=== PATIENT | female | born 1990 | race Caucasian/White ===

== ENCOUNTER 2018-02-27 13:54 | Inpatient (IN) | payer MEDICAID ==
[2018-02-27 14:50] LABS: PLATELET COUNT 143 10^3/uL (150-400)
--- NOTE | 2018-02-27 15:19 | PDGENHP ---
History and Physical History and Physical: CARE: [facility] HPI: Patient is a 27yo with IUP@ 37-6wks that presents to L&D from office 2/2 elevated BP's. Pt denies any headaches, visual changes, epigastric pain. She denies any contractions, LOF, VB. She reports +FM. EDC: 03/14/18 which is based on LMP: 06/07/17 which is known and consistent with Ultrasound at 7 weeks. Her is complicated by: BMI, abnormal 1hr GTT- 3hr NL, rubella low Immune, Rh Negative, HISTORY: Previous OB history: G1 Past medical history: back injury x3, rh negative Past surgical history: none Medications: PNV, rhogam Allergies (list reaction): NKDA LABS: Rh: negative ABS: Neg Rubella: low Immune HbsAg: NR HIV: NR VDRL: NR 1hr: 142, 3hr GTT NL Gonorrhea: Neg Chlamydia: Neg Pap: Normal GBS: negative BMI: (prepreg) 31 PHYSICAL EXAM: Constitutional: WN, A&Ox3 HEENT: normocephalic atraumatic, supple Heart: RRR, no murmur Chest: CTA-B Abdomen: Soft, nontender, gravid SVE: ft/th/high (in office) Extremities: 1+ edema, negative homans sign Neuro: grossly normal Psych: normal affect assessment: Reassuring FHTs, baseline 120 +accels, no decels, moderate variability Contractions: toco: irritability noted Assessment: 1) 27yo with IUP@37-6wks (L/7) 2) GHTN, no evidence of PreEclampsia 3) IOL 4) GBS negative 5) Cat 1 FHR tracing 6) platelets 147 7) P:C 1.0 8) Rh negative 9) Rubella Low Immune Plan: 1) admit to L&D 2) chavez balloon placed 3) anticipate pitocin/AROM in AM 4) closely monitor BPs 5) Dr Holly, aware and agrees with plan of care
[2018-02-27] MEDS ORDERED: LIDOCAINE 1% 300 MG/30 ML SDV SC PRN (15:53)
[2018-02-27] MEDS ORDERED: OLIVE OIL 118 ML BTL MISC PRN (15:53)
[2018-02-27] MEDS ORDERED: EPSOM SALT 454 GM TP PRN (15:53)
[2018-02-27] MEDS ORDERED: TERBUTALINE SULFATE 1 MG/ML VIAL IV PRN (15:53)
[2018-02-27] MEDS ORDERED: LR 1,000 ML IV PRN (15:53)
[2018-02-27] MEDS ORDERED: IBUPROFEN 600 MG TAB PO PRN (15:53)
[2018-02-27] MEDS ORDERED: MISOPROSTOL 200 MCG TAB PR PRN (15:53)
[2018-02-27] MEDS ORDERED: OXYTOCIN/RINGERS LACTATE 1,000 ML IV PRN (15:53)
[2018-02-27] MEDS ORDERED: ZOLPIDEM TARTRATE 5 MG TAB PO PRN (17:08)
[2018-02-27] MEDS ORDERED: OXYTOCIN 10 UNIT/ML VIAL ONE ×3 (18:15→18:17)
[2018-02-27] MEDS ORDERED: AMMONIA AROMATIC 1 EACH AMP IH ONE (18:17)
[2018-02-28] MEDS ORDERED: LR 500 ML IV PRN (03:16)
[2018-02-28] MEDS ORDERED: OXYTOCIN/RINGERS LACTATE 500 ML IV SCH (03:30)
[2018-02-28 06:51] LABS: PLATELET COUNT 132 10^3/uL (150-400)
--- NOTE | 2018-02-28 13:53 | OBPROG ---
Labor Progress Note Assessment/Plan: Assessment: IUP at 38 wks gest hypertension Plan: AROM - clear fluid cont pitocin 02/28/18 13:50 Subjective/Intrapartum Course: 02/28/18 13:51 Pt doing fine - minimal discomfort with ctxns at this point. ok with AROM to help build intensity. denies JACOBS or n/v or RUQ pain Objective: 02/28/18 06:00 02/28/18 06:00 Patient ABO/Rh O NEGATIVE 02/27/18 14:30 Uric Acid 6.4 mg/dL (2.5-6.8) 02/28/18 06:00 Total Bilirubin 0.3 mg/dL (0.1-1.4) 02/28/18 06:00 Conjugated Bilirubin 0.3 mg/dL (0.0-0.5) 02/28/18 06:00 Unconjugated Bilirubin 0.0 mg/dL (0.0-1.1) 02/28/18 06:00 AST 24 IU/L (14-46) 02/28/18 06:00 ALT 29 IU/L (9-52) 02/28/18 06:00 Lactate Dehydrogenase 436 IU/L (313-618) 02/28/18 06:00 - SVE Dilation (cm): 4 Effacement (%): 80 Station: -2 Membranes: AROM Amniotic Fluid Color: Clear - Contraction Pattern Assessment Current Contraction Pattern: Irregular (on 16 mu/min pit - mild ctxns) - FHR Assessment [place] FHR (bpm): 130 FHR Pattern Variability: Moderate FHR Category: 1 - Procedures Non-surgical Procedures: Amniotomy Oxytocin Orders Assessment - Pre-Induction/Augmentation Assessment Gestational Age: 37 week(s) and 6 day(s) ICD10 Worksheet Patient Problems: Problems Problem Status Onset Gestational hypertension Acute - ICD10 Problem Qualifiers (1) Gestational hypertension
--- NOTE | 2018-02-28 18:44 | OBPROG ---
Labor Progress Note Assessment/Plan: Assessment: IUP at 38 wks gest hypertension AROM 13:40 - increased pain Plan: question of presenting part - will check u/s cont pitocin 02/28/18 13:50 02/28/18 18:41 Subjective/Intrapartum Course: 02/28/18 13:51 Pt doing fine - minimal discomfort with ctxns at this point. ok with AROM to help build intensity. denies JACOBS or n/v or RUQ pain 02/28/18 18:42 Pt working much more with ctxn pain since AROM at 13:40. hopeful for change - frustrated by / ?soft part - will check u/s - ?cheek Objective: 02/28/18 06:00 02/28/18 06:00 Patient ABO/Rh O NEGATIVE 02/27/18 14:30 Uric Acid 6.4 mg/dL (2.5-6.8) 02/28/18 06:00 Total Bilirubin 0.3 mg/dL (0.1-1.4) 02/28/18 06:00 Conjugated Bilirubin 0.3 mg/dL (0.0-0.5) 02/28/18 06:00 Unconjugated Bilirubin 0.0 mg/dL (0.0-1.1) 02/28/18 06:00 AST 24 IU/L (14-46) 02/28/18 06:00 ALT 29 IU/L (9-52) 02/28/18 06:00 Lactate Dehydrogenase 436 IU/L (313-618) 02/28/18 06:00 - SVE Dilation (cm): 5 Effacement (%): 80 Station: -2 Membranes: AROM Amniotic Fluid Color: Clear - Contraction Pattern Assessment Current Contraction Pattern: Regular (q 3-4 min on 20 mu/min pit), Irregular ( on 16 mu/min pit - mild ctxns) - FHR Assessment [place]ue FHR (bpm): 130 FHR Pattern Variability: Moderate FHR Category: 1 - Procedures Non-surgical Procedures: Amniotomy Oxytocin Orders Assessment - Pre-Induction/Augmentation Assessment Gestational Age: 37 week(s) and 6 day(s) ICD10 Worksheet Patient Problems: Problems Problem Status Onset Gestational hypertension Acute - ICD10 Problem Qualifiers (1) Gestational hypertension
[2018-02-28] MEDS ORDERED: ceFAZolin 2 GM/DEXTROSE 100 ML IV ONE (20:57)
[2018-02-28] MEDS ORDERED: LR 500 ML IV ONE (20:57)
[2018-02-28] MEDS ORDERED: LR 1,000 ML IV SCH (21:00)
[2018-02-28] MEDS ORDERED: HEMABATE 250 MCG/1 ML AMP IM ONE (21:17)
--- NOTE | 2018-02-28 21:38 | OBPROG ---
Labor Progress Note Assessment/Plan: Assessment: IUP at 38 wks - NOW IDENTIFIED TO BE BREECH - setting up c/s delivery gest hypertension Plan: breech presentation on u/s - pt reports approx 1 -2 hrs ago had strange noise and felt movement while in tub. pt given risks and benefits of c/s and consent signed cont pitocin 02/28/18 13:50 02/28/18 18:41 02/28/18 21:34 Subjective/Intrapartum Course: 02/28/18 13:51 Pt doing fine - minimal discomfort with ctxns at this point. ok with AROM to help build intensity. denies JACOBS or n/v or RUQ pain 02/28/18 18:42 Pt working much more with ctxn pain since AROM at 13:40. hopeful for change - frustrated by / ?soft part - will check u/s - ?cheek/ lateral forehead 02/28/18 21:36 Pt reporting ctxn intensity worse after getting out of tub. felt mvmt and had strange gurgling noise while in tub. u/s done and baby in breech position. disc uncommon occurrence of baby flipping in labor after AROM. reassured baby with great FHTs and no sign of distress Objective: 02/28/18 06:00 02/28/18 06:00 Patient ABO/Rh O NEGATIVE 02/27/18 14:30 Uric Acid 6.4 mg/dL (2.5-6.8) 02/28/18 06:00 Total Bilirubin 0.3 mg/dL (0.1-1.4) 02/28/18 06:00 Conjugated Bilirubin 0.3 mg/dL (0.0-0.5) 02/28/18 06:00 Unconjugated Bilirubin 0.0 mg/dL (0.0-1.1) 02/28/18 06:00 AST 24 IU/L (14-46) 02/28/18 06:00 ALT 29 IU/L (9-52) 02/28/18 06:00 Lactate Dehydrogenase 436 IU/L (313-618) 02/28/18 06:00 - SVE Membranes: AROM Amniotic Fluid Color: Clear - Contraction Pattern Assessment Current Contraction Pattern: Regular (q 3-4 min on 20 mu/min pit), Irregular ( pitocin stopped and ctxns significantly lessened) - FHR Assessment [place] FHR (bpm): 140 FHR Pattern Variability: Moderate FHR Category: 1 - Procedures Non-surgical Procedures: Amniotomy Oxytocin Orders Assessment - Pre-Induction/Augmentation Assessment Gestational Age: 37 week(s) and 6 day(s) ICD10 Worksheet Patient Problems: Problems Problem Status Onset Breech presentation Acute Gestational hypertension Acute - ICD10 Problem Qualifiers (1) Gestational hypertension (2) Breech presentation
[2018-02-28] MEDS ORDERED: ONDANSETRON 4 MG/2 ML VIAL ONE (21:55)
[2018-02-28] MEDS ORDERED: METOCLOPRAMIDE 10 MG/2 ML VIAL ONE (21:55)
[2018-02-28] MEDS ORDERED: PHENYLEPHRINE 10 MG/ML SDV ONE (21:59)
[2018-02-28] MEDS ORDERED: OXYTOCIN 100 UNITS/10 ML VIAL ONE (22:06)
[2018-02-28] MEDS ORDERED: fentaNYL 100 MCG/2 ML INJ IVP PRN (22:14)
[2018-02-28] MEDS ORDERED: HYDROmorphONE/DILAUDID 1 MG/ML INJ IVP PRN (22:14)
[2018-02-28] MEDS ORDERED: ONDANSETRON 4 MG/2 ML VIAL IVP PRN (22:14)
--- NOTE | 2018-02-28 22:20 | PREANESOB ---
Obstetric Pre-Anesthesia Info - General Info Proposed Procedure: : 1 Para: 0 FAITH: 03/14/18 Gestational Age: 37 week(s) and 6 day(s) - Info Status: Full Term - Labor Status Cervical Dilation per last OB SVE: 5 Station per last OB SVE: -2 Amniotic Fluid Color: Clear Anesthesia Allergies/Adverse Reactions: Allergy/AdvReac Type Severity Reaction Status Date / Time codeine Allergy Hives Verified 02/27/18 14:06 Home Medications: Medication Instructions Recorded Ascorbic Acid [Vitamin C 500 mg 500 mg PO BID 02/27/18 (*)] Vit27&Calcium/Iron/FA 1 each PO DAILY 02/27/18 [ Rx 1 Tablet (RX)] Visit Medications: Generic Name Dose Route Start Last Admin Trade Name Freq PRN Reason Stop Dose Admin Oxytocin/Lactated Ringer's 1,000 mls @ 125 mls/hr 02/27/18 15:53 Pitocin 20 Units/Lr (Premix) IV PRN PRN Post bleeding Lactated Ringer's 500 mls @ 500 mls/hr 02/28/18 03:16 Lr IV 03/01/18 03:16 PRN PRN Maternal Hypotension Oxytocin/Lactated Ringer's 500 mls @ 0 mls/hr 02/28/18 03:30 02/28/18 05:52 Pitocin 30 Units/Lr (Premix) IV 08/27/18 03:29 500 mls CONT REYMUNDO Administration Protocol Per Protocol Lactated Ringer's 1,000 mls @ 125 mls/hr 02/28/18 21:00 Lr IV 03/01/18 20:59 CONT REYMUNDO Ibuprofen 600 mg 02/27/18 15:53 Motrin PO ONCE PRN post , pain Lidocaine HCl 300 mg 02/27/18 15:53 Lidocaine Hcl 1% SC 08/26/18 15:52 ONCE PRN episiotomy Magnesium Sulfate 454 gm 02/27/18 15:53 Epsom Salt TP 08/26/18 15:52 Q1H PRN perineal discomfort Misoprostol 800 - 1,000 mcg 02/27/18 15:53 Cytotec NE ONCE PRN Vaginal Atony/Bleeding [place] Oil 118 ml 02/27/18 15:53 Sweet Oil MISC 08/26/18 15:52 ONCE PRN perineal massage Terbutaline Sulfate 0.25 mg 02/27/18 15:53 Brethine IV 08/26/18 15:52 ONCE PRN Tachysystole Zolpidem Tartrate 5 mg 02/27/18 17:08 Ambien PO 08/26/18 17:07 ONCE PRN Sleep/Insomnia Discontinued Medications Generic Name Dose Route Start Last Admin Trade Name Lisa PRN Reason Stop Dose Admin Ammonia (Aromatic Spirit) Confirm 02/27/18 18:17 Ammonia Aromatic Administered 02/27/18 18:18 Dose 1 each IH .STK-MED ONE Carboprost Tromethamine Confirm 02/28/18 21:17 Hemabate Administered 02/28/18 21:18 Dose 250 mcg IM .STK-MED ONE Lactated Ringer's 1,000 mls @ 0 mls/hr 02/27/18 15:53 02/28/18 05:48 Lr IV 02/28/18 15:52 1,000 mls PRN PRN Administration SEE PROTOCOL CONDITIONS Protocol Per Protocol Cefazolin Sodium/Dextrose 100 mls @ 200 mls/hr 02/28/18 20:57 Ancef 2 Gm IV 02/28/18 21:26 ONCALL ONE Protocol Lactated Ringer's 500 mls @ 0 mls/hr 02/28/18 20:57 Lr IV 02/28/18 20:58 ONCE ONE As Directed Metoclopramide HCl Confirm 02/28/18 21:55 Reglan Injection Administered 02/28/18 21:56 Dose 10 mg .ROUTE .STK-MED ONE Morphine Sulfate Confirm 02/28/18 21:40 Morphine Sulfate Administered 02/28/18 21:41 Dose 10 mg .ROUTE .STK-MED ONE Ondansetron HCl Confirm 02/28/18 21:55 Zofran Administered 02/28/18 21:56 Dose 4 mg .ROUTE .STK-MED ONE Oxytocin Confirm 02/27/18 18:15 Pitocin Administered 02/27/18 18:16 Dose 10 unit .ROUTE .STK-MED ONE Oxytocin Confirm 02/27/18 18:16 Pitocin Administered 02/27/18 18:17 Dose 10 unit .ROUTE .STK-MED ONE Oxytocin Confirm 02/27/18 18:17 Pitocin Administered 02/27/18 18:18 Dose 10 unit .ROUTE .STK-MED ONE Oxytocin Confirm 02/28/18 22:06 Pitocin Administered 02/28/18 22:07 Dose 100 units .ROUTE .STK-MED ONE Phenylephrine HCl Confirm 02/28/18 21:59 Neosynephrine Administered 02/28/18 22:00 Dose 10 mg .ROUTE .STK-MED ONE - Anesthesia History Response to Local Anesthetics: Normal - Vital Signs Height/Weight (Nursing): Height 172.72 cm Weight 107.955 kg - Focused Exam Neck exam: FROM Mallampati Score: Class 2 Mouth exam: normal dental/mouth exam Pulmonary: clear to auscultation Cardiovascular: regular rate and rhythym Labs: 02/28/18 06:00 02/28/18 06:00 Patient ABO/Rh O NEGATIVE 02/27/18 14:30 Uric Acid 6.4 mg/dL (2.5-6.8) 02/28/18 06:00 Total Bilirubin 0.3 mg/dL (0.1-1.4) 02/28/18 06:00 Conjugated Bilirubin 0.3 mg/dL (0.0-0.5) 02/28/18 06:00 Unconjugated Bilirubin 0.0 mg/dL (0.0-1.1) 02/28/18 06:00 AST 24 IU/L (14-46) 02/28/18 06:00 ALT 29 IU/L (9-52) 02/28/18 06:00 Lactate Dehydrogenase 436 IU/L (313-618) 02/28/18 06:00 - Plan Anesthetic Plan: Spinal Consent Signed and on Chart: Yes Patient/Guardian Understands and Agrees to Plan: Yes
--- NOTE | 2018-02-28 23:21 | POSTANESTH ---
Post Anesthetic Evaluation Cardiovascular Status: Normal, Stable Respiratory Status: Normal, Stable Level of Consciousness/Mental Status: Alert and Oriented Pain Control: Adequate, Prn Tx Ordered Nausea/Vomiting Control: Adequate, Prn Tx Ordered Complications Possibly Related to Anesthesia: None Noted
[2018-02-28] MEDS ORDERED: LACTULOSE 20 GM/30 ML UDCUP PO PRN (23:34)
[2018-02-28] MEDS ORDERED: BISACODYL 10 MG SUPP PR PRN (23:34)
[2018-02-28] MEDS ORDERED: POLYETHYLENE GLYCOL 3350 17 GM PKT PO PRN (23:34)
[2018-02-28] MEDS ORDERED: MAGNESIUM HYDROXIDE 30 ML UDCUP PO PRN (23:34)
--- NOTE | 2018-02-28 23:38 | OBDEL ---
Info Type: Primary Presentation at Delivery: Breech L&D Analgesia/Anesthesia Type: Spinal (with duramorph) GBS+: No Intrapartum Medications: Generic Name Dose Route Start Last Admin Trade Name Freq PRN Reason Stop Dose Admin Oxytocin/Lactated Ringer's 500 mls @ 0 mls/hr 02/28/18 03:30 02/28/18 05:52 Pitocin 30 Units/Lr (Premix) IV 08/27/18 03:29 500 mls CONT REYMUNDO Administration Protocol Per Protocol Discontinued Medications Generic Name Dose Route Start Last Admin Trade Name Freq PRN Reason Stop Dose Admin Lactated Ringer's 1,000 mls @ 0 mls/hr 02/27/18 15:53 02/28/18 05:48 Lr IV 02/28/18 15:52 1,000 mls PRN PRN Administration SEE PROTOCOL CONDITIONS Protocol Per Protocol - Care Provider Elocution Teacher/HISTOLOGY MANAGER: Debbie Valdez - Hospital Course Intrapartum: 02/28/18 13:51 Pt doing fine - minimal discomfort with ctxns at this point. ok with AROM to help build intensity. denies JACOBS or n/v or RUQ pain 02/28/18 18:42 Pt working much more with ctxn pain since AROM at 13:40. hopeful for change - frustrated by / ?soft part - will check u/s - ?cheek/ lateral forehead 02/28/18 21:36 Pt reporting ctxn intensity worse after getting out of tub. felt mvmt and had strange gurgling noise while in tub. u/s done and baby in breech position. disc uncommon occurrence of baby flipping in labor after AROM. reassured baby with great FHTs and no sign of distress Vaginal Delivery - Labor and Delivery Amniotic Fluid Color: Clear Non-surgical Procedures: Amniotomy Cord Gases: Cord Gases Cord Blood PCO2 54.9 mmHg (37-60) 02/28/18 22:50 Cord Base Excess -7.4 mEq/L (-13.6--3.2) 02/28/18 22:50 Cord ABG pH 7.21 (7.10-7.37) 02/28/18 22:50 Cord VBG pH 7.27 (7.20-7.42) 02/28/18 22:50 Operative Report - Delivery Pre-op Diagnoses: IUP at 38 wks, Gest HTN, breech Post-op Diagnoses: same, delivered History of Prior Section: No Number of Prior Sections: 0 Nulliparous Prior to Delivery: No Indications for Current Section: Breech Procedure: Unscheduled, Low Transverse Surgeon: Alejanrda Prajapati Jack Winder: Didi Cleary Anesthesiologist: Bonilla St Complications: Other (Specify) (efe breech, body cord) Findings: normal uterus, tubes and ovaries. clear fluid. breech - efe, RST position. legs flexed and extended normally - each arm swept over chest and delivered without problem. body cord noted - head delivered without problem. delayed cord clamp after 1 min. placenta delivered without probs. good uterine tone. incision closed in double layer. clear UOP. prominent sacral promontory IV Fluid (ml): 1,750 EBL: 700 Cord Gases: Cord Gases Cord Blood PCO2 54.9 mmHg (37-60) 02/28/18 22:50 Cord Base Excess -7.4 mEq/L (-13.6--3.2) 02/28/18 22:50 Cord ABG pH 7.21 (7.10-7.37) 02/28/18 22:50 Cord VBG pH 7.27 (7.20-7.42) 02/28/18 22:50 [place] Data FAITH: 03/14/18 Gestational Age: 38 week(s) and 0 day(s) Donahue Delivery Date: 02/28/18 Delivery Time: 22:25 Sex of : Female Score (1 Min): 8 Score (5 Min): 9 ICD10 Worksheet Patient Problems: Problems Problem Status Onset delivery delivered Acute Gestational hypertension Acute Breech presentation Acute - ICD10 Problem Qualifiers (1) Gestational hypertension (2) Breech presentation
[2018-03-01] MEDS ORDERED: ONDANSETRON 4 MG/2 ML VIAL IVP PRN (00:45)
[2018-03-01] MEDS ORDERED: PROMETHAZINE HCL 25 MG/ML INJ IV ONE (02:00)
[2018-03-01] MEDS: KETOROLAC 30 MG/1 ML SDV IVP SCH ×4 (03:40→22:30)
[2018-03-01] MEDS: SENNOSIDES/DOCUSATE SODIUM TAB PO SCH ×2 (09:57→22:31)
--- NOTE | 2018-03-01 13:02 | OBPP ---
Progress Note Assessment/Plan: Assessment: POD1 s/p unscheduled PLTCS for breech. IOL for GHTN - no dx of PIH. Routine cares - chavez out, dc IVF, up and ambulate. Bandage can come off this evening. Day 1 labs tomorrow AM. Likely home Saturday vs Saturday. GHTN: BP's now normal range, labs never abnormal, no concerning new sx. No mag. Rh neg, Rubella low-immune - needs MMR and RhoGam if indicated. JM Subjective/ Course: 03/01/18 16:41 Bhakti is doing well - spirits are good. She's thankful for healthy baby girl. Pain well controlled, chavez still in, BF attempts have gone well thus far , incision still bandaged. Objective: 02/28/18 06:00 02/28/18 06:00 Patient ABO/Rh O NEGATIVE 03/01/18 00:15 Uric Acid 6.4 mg/dL (2.5-6.8) 02/28/18 06:00 Total Bilirubin 0.3 mg/dL (0.1-1.4) 02/28/18 06:00 Conjugated Bilirubin 0.3 mg/dL (0.0-0.5) 02/28/18 06:00 Unconjugated Bilirubin 0.0 mg/dL (0.0-1.1) 02/28/18 06:00 AST 24 IU/L (14-46) 02/28/18 06:00 ALT 29 IU/L (9-52) 02/28/18 06:00 Lactate Dehydrogenase 436 IU/L (313-618) 02/28/18 06:00 Temp Pulse Resp BP Pulse Ox 36.6 C 85 16 121/83 H 95 03/01/18 11:55 03/01/18 11:55 03/01/18 11:55 03/01/18 11:55 03/01/18 11:55 Uterine Position/Fundal Height: At Umbilicus Uterine Tone: Firm (Incision bandaged, no shadowing)
--- NOTE | 2018-03-01 22:49 | POSTANESTH ---
Post Anesthetic Evaluation Cardiovascular Status: Normal, Stable (POST DURAMORPH Follow-Up, patient doing well, no complaints) Respiratory Status: Normal, Stable Level of Consciousness/Mental Status: Alert and Oriented Pain Control: Adequate, Prn Tx Ordered Nausea/Vomiting Control: Adequate, Prn Tx Ordered Complications Possibly Related to Anesthesia: None Noted
[2018-03-02] MEDS: IBUPROFEN 600 MG TAB PO PRN ×4 (04:36→22:11)
[2018-03-02] MEDS: SENNOSIDES/DOCUSATE SODIUM TAB PO SCH ×2 (10:38→22:12)
--- NOTE | 2018-03-02 13:58 | OBPP ---
Progress Note Assessment/Plan: Assessment: POD 1 1/2 s/p primary c/s for breech gest hypertension Plan: doing well. good b/p and asymptomatic. routine care cont pitocin 02/28/18 13:50 02/28/18 18:41 02/28/18 21:34 03/02/18 13:55 Subjective/ Course: 03/01/18 16:41 Bhakti is doing well - spirits are good. She's thankful for healthy baby girl. Pain well controlled, chavez still in, BF attempts have gone well thus far , incision still bandaged. 03/02/18 13:56 Pt doing fine. bld is very light. urinating fine. no BM yet. baby is latching well and also pumping. very happy. pain well controlled with ibu only 03/02/18 13:57 Objective: 02/28/18 06:00 02/28/18 06:00 Patient ABO/Rh O NEGATIVE 03/01/18 00:15 Uric Acid 6.4 mg/dL (2.5-6.8) 02/28/18 06:00 Total Bilirubin 0.3 mg/dL (0.1-1.4) 02/28/18 06:00 Conjugated Bilirubin 0.3 mg/dL (0.0-0.5) 02/28/18 06:00 Unconjugated Bilirubin 0.0 mg/dL (0.0-1.1) 02/28/18 06:00 AST 24 IU/L (14-46) 02/28/18 06:00 ALT 29 IU/L (9-52) 02/28/18 06:00 Lactate Dehydrogenase 436 IU/L (313-618) 02/28/18 06:00 Temp Pulse Resp BP Pulse Ox 36.5 C 75 18 126/89 H 95 03/02/18 07:20 03/02/18 07:20 03/02/18 07:20 03/02/18 07:20 03/02/18 07:20 Uterine Position/Fundal Height: Umbilicus -1 Uterine Tone: Firm Physical Exam - Physical Exam Abdomen: non-tender (approp post op tenderness), soft, other (incision CDI, normal lochia - light) Extremities: non-tender, pedal edema (mild) Skin: normal color, warm/dry Neuro/Psych: alert, normal mood/affect
[2018-03-02] MEDS: HYDROCODONE/APAP 5/325 TAB PO PRN (22:53)
[2018-03-03] MEDS: IBUPROFEN 600 MG TAB PO PRN ×2 (03:56→12:43)
[2018-03-03] MEDS: HYDROCODONE/APAP 5/325 TAB PO PRN (07:12)
[2018-03-03] MEDS: SENNOSIDES/DOCUSATE SODIUM TAB PO SCH (08:51)
--- NOTE | 2018-03-03 11:42 | OBGCSDC ---
General Delivery Information - General Info : 1 Para: 1 Abortions: 0 Type: Primary L&D Analgesia/Anesthesia Type: Spinal Admission Date: 02/27/18 Labs: Patient ABO/Rh O NEGATIVE 03/01/18 00:15 Hct 35.7 % (38.0-47.0) L 02/28/18 06:00 - Hospital Course Intrapartum: 02/28/18 13:51 Pt doing fine - minimal discomfort with ctxns at this point. ok with AROM to help build intensity. denies JACOBS or n/v or RUQ pain 02/28/18 18:42 Pt working much more with ctxn pain since AROM at 13:40. hopeful for change - frustrated by / ?soft part - will check u/s - ?cheek/ lateral forehead 02/28/18 21:36 Pt reporting ctxn intensity worse after getting out of tub. felt mvmt and had strange gurgling noise while in tub. u/s done and baby in breech position. disc uncommon occurrence of baby flipping in labor after AROM. reassured baby with great FHTs and no sign of distress : 03/01/18 16:41 Bhakti is doing well - spirits are good. She's thankful for healthy baby girl. Pain well controlled, chavez still in, BF attempts have gone well thus far , incision still bandaged. 03/02/18 13:56 Pt doing fine. bld is very light. urinating fine. no BM yet. baby is latching well and also pumping. very happy. pain well controlled with ibu only 03/02/18 13:57 Vaginal - Diagnosis Amniotic Fluid Color: Clear - Procedures Non-surgical Procedures: Amniotomy - Delivery Providers Surgeon: Alejandra Prajapati Cocoa Bean Roaster: Didi Cleary Anesthesiologist: Bonilla St - Delivery Number of Prior Sections: 0 Indications for Current Section: Breech Non-surgical Procedures: Amniotomy Surgical Procedures: Unscheduled, Low Transverse Intra-op Complications: Other (Specify) (efe breech, body cord) EBL: 700 Data FAITH: 03/14/18 Gestational Age: 38 week(s) and 3 day(s) Donahue Delivery Date: 02/28/18 Delivery Time: 22:25 Sex of : Female [place] Weight (gm): 3232 g Score (1 Min): 8 Score (5 Min): 9 Discharge Information - Discharge Information Prescriptions: Hydrocodone/APAP 5/325 [[place] 5/325 (*)] 1 - 2 tab PO Q4HRS PRN #25 tab PRN Reason: Pain, Moderate Condition: Good Instruction/Follow Up: See Instruction Sheet, Two Weeks, Four Weeks, Six Weeks
--- NOTE | 2018-03-03 11:42 | OBPP ---
Progress Note Assessment/Plan: Assessment: POD3 s/p unscheduled PLTCS for breech. IOL for GHTN - no dx of PIH. Home today. Incision check 2 wks. GHTN: BP's now normal range, labs never abnormal, no concerning new sx. No mag. Rh neg, Rubella low-immune - needs MMR and RhoGam if indicated. MAURIZIO 03/03/18 12:08 Subjective/ Course: 03/01/18 16:41 Bhakti is doing well - spirits are good. She's thankful for healthy baby girl. Pain well controlled, chavez still in, BF attempts have gone well thus far , incision still bandaged. 03/02/18 13:56 Pt doing fine. bld is very light. urinating fine. no BM yet. baby is latching well and also pumping. very happy. pain well controlled with ibu only 03/02/18 13:57 03/03/18 12:07 Doing well, ready for home. Pain well controlled. No new s/sx of PIH. Objective: 02/28/18 06:00 02/28/18 06:00 Patient ABO/Rh O NEGATIVE 03/01/18 00:15 Uric Acid 6.4 mg/dL (2.5-6.8) 02/28/18 06:00 Total Bilirubin 0.3 mg/dL (0.1-1.4) 02/28/18 06:00 Conjugated Bilirubin 0.3 mg/dL (0.0-0.5) 02/28/18 06:00 Unconjugated Bilirubin 0.0 mg/dL (0.0-1.1) 02/28/18 06:00 AST 24 IU/L (14-46) 02/28/18 06:00 ALT 29 IU/L (9-52) 02/28/18 06:00 Lactate Dehydrogenase 436 IU/L (313-618) 02/28/18 06:00 Temp Pulse Resp BP Pulse Ox 36.2 C 78 16 120/85 H 96 03/02/18 20:00 03/02/18 20:00 03/02/18 20:00 03/03/18 00:15 03/02/18 20:00 Uterine Position/Fundal Height: At Umbilicus Uterine Tone: Firm (Incision CDI with steri strips)
[2018-03-03 12:52] VITALS: BP 132/98
== END 2018-03-03 12:45 | disposition home or self-care (01) | DRG 540 ==
LOC: FLD 13:54 → OBSVTOIN 14:06 → FOB 03-01 01:37
PROVIDERS: ADMIT Advanced Practice Midwife; ATTEND Advanced Practice Midwife
PROC: 10907ZC Drainage of Amniotic Fluid, Therapeutic from Products of Conception, Via Natural or Artificial Opening (ICD-10-PCS; principal; 2018-02-28)
PROC: 10D00Z1 Extraction of Products of Conception, Low, Open Approach (ICD-10-PCS; principal; 2018-02-28)
DX: O32.1XX0 Maternal care for breech presentation, not applicable or unspecified (principal); O13.4 Gestational [pregnancy-induced] hypertension without significant proteinuria, complicating childbirth; Z37.0 Single live birth; Z3A.38 38 weeks gestation of pregnancy; O69.82X0 Labor and delivery complicated by other cord entanglement, without compression, not applicable or unspecified
CPT/HCPCS: J0690; J1885; J2270; J2370; J2405; J2550; J2590; J2765; J3105